=== PATIENT | male | born 2000 | race Caucasian/White ===

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

== ENCOUNTER 2021-05-21 15:51 | Emergency (ER) | payer MEDICAID ==
--- OUTSIDE RECORDS SUMMARY | 2021-05-21 15:57 | XMS REPORT | Clinical Summary ---
Author Author [facility] Organization [facility] Address Unknown Phone Unavailable Care Team Providers Care Vault Installer Name Role Phone Bernie Betts MD Unavailable Unavailable Source Comments Some departments are not documenting in the electronic medical record. 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 No left coronary artery dilation. No wall motion abnormalities. Normal ventricular function. EKG is normal. Mynor valdez is asymptomatic and very active. No activity restrictions from [facility] cardiac standpoint. No need for antibiotic prophylaxis before dental pr ocedures. Good dental hygiene and regular dental visits are recommended Family History Relation Name Status Comments Father Alive Mother Alive Social History Date Tobacco Use Types Packs/Day Years Used Passive Smoke Exposure - Cigarettes Never Smoker Sex Assigned at Date Recorded Not on file Growth Chart Information Head Circum Date Age Height Weight 06/27/2013 12 years 148.5 cm (4' 39 kg (85 lb 10.47") 15.7 oz) Last Filed Vital Signs Reading Time Taken Comments Vital Sign 111/67 06/27/2013 8:40 AM CDT Blood Pressure 73 06/27/2013 8:40 AM CDT Pulse - - Temperature 24 06/27/2013 8:40 AM CDT Respiratory Rate 99% 06/27/2013 8:40 AM CDT Oxygen Saturation - - Inhaled Oxygen Concentration 39 kg (85 lb 15.7 oz) 06/27/2013 8:40 AM CDT Weight 148.5 cm (4' 10.47") 06/27/2013 8:40 AM CDT Height 17.69 06/27/2013 8:40 AM CDT Body Mass Index Plan of Treatment Health Maintenance Due Date Last Done Comments HPV VACCINES (1 - Male 2012 2-dose series) HIV SCREENING 2016 DTAP/TDAP VACCINES (1 - 2019 Tdap) HEPATITIS C SCREENING 2019 PHYSICAL (COMPREHENSIVE) 2019 EXAM INFLUENZA VACCINE 06/11/2021 MENINGOCOCCAL VACCINE Aged Out No longer eligib le based on patient's age to (Quiana FLORES) complete this topic Results Not on filefrom Last 3 Months Advance Directives Patient Pharmacy Coordinator Explanation Type Date Recorded Advance Directives and Living Will
== END 2021-05-21 16:15 | disposition left against medical advice (07) ==
LOC: EDUNIT# 15:51 → ER 15:53
DX: R50.9 Fever, unspecified (principal)